=== PATIENT | male | born 1990 | race African-American/Black ===

== ENCOUNTER 2017-08-30 11:24 | Emergency (ER) | payer OTHER ==
[~2017-08-30] VITALS: Ht 185.4 cm; Wt 99.8 kg
[~2017-08-30 11:24] MED LIST: ADVAIR 250-501 EACH IH; CEPHALEXIN 500500 M2 PO; MEDROLDOSEPACK PO; NOHOMEMEDICATIONS; NORCO 5-325 TA1 EACH PO; PREDNISONE 20 M20 M1 PO; PROAIR HFA8.5 GM IH; PROAIR HFA8.5 GM PO; PROMETHAZINE-C120 ML PO; VENTOLIN17 GM INH; ZPAK PO
[2017-08-30 12:34] LABS: INFLUENZA B ANTIGEN None Detected (None Detect)
[2017-08-30 12:35] LABS: HEMATOCRIT 51.6 % (42.0-52.0); MCH 27.4 pg (26.0-34.0); MCHC 32.9 g/dL (28.0-37.0); MCV 83.3 fL (80.0-100.0); MPV 8.7 fl. (7.2-11.1); NUCLEATED RBCS 0 /100WBC; PLATELET COUNT* 290 thou/uL (150-400); RBC 6.19 mil/uL (4.50-6.00); RDW-CV 13.9 % (10.5-14.5); WBC 6.1 thou/uL (4.0-11.0)
[2017-08-30] MEDS ORDERED: OSELB75 PO (12:41)
[2017-08-30] MEDS ORDERED: ZOFRAN ODT4 MG PO (12:41)
[2017-08-30 12:43] LABS: CALCIUM 9.2 mg/dL (8.5-10.1); CREATININE 1.7 mg/dL (0.6-1.3); POTASSIUM 3.7 mmol/L (3.5-5.1)
[2017-08-30 12:47] LABS: ALBUMIN 3.9 g/dL (3.4-5.0); TOTAL BILIRUBIN 0.4 mg/dL (<0.1-1.0); TOTAL PROTEIN 8.1 g/dL (6.4-8.2)
[2017-08-30 12:56] VITALS: BP 110/72
[2017-08-30 13:07] LABS: ABSOLUTE BASOPHILS 0.1 thou/uL (0.0-0.2); ABSOLUTE LYMPHOCYTES 1.4 thou/uL (0.8-5.3); ABSOLUTE MONOCYTES 0.9 thou/uL (0.0-1.2); ABSOLUTE NEUTROPHILS 3.7 thou/uL (1.6-8.1); ATYPICAL LYMPHS 6 %; GIANT PLATELETS OCCASIONAL; LARGE PLATELETS FEW; PLATELET ESTIMATE ADEQUATE
== END 2017-08-30 12:57 | disposition home or self-care (01) ==
LOC: M.ERS 11:24
PROVIDERS: Physician Assistant
DX: J11.1 Influenza due to unidentified influenza virus with other respiratory manifestations (principal); J45.909 Unspecified asthma, uncomplicated

== ENCOUNTER 2018-03-03 10:00 | Emergency (ER) | payer OTHER ==
[~2018-03-03] VITALS: Ht 185.4 cm; Wt 102.1 kg
[~2018-03-03 10:00] MED LIST changes: +OSELB75 PO; +ZOFRAN ODT4 MG PO
[2018-03-03] MEDS ORDERED: VENTOLIN HFA 1818 GM INH (10:06)
[2018-03-03] MEDS ORDERED: PREDNISONE 20 M20 M1 PO (10:21)
[2018-03-03] MEDS ORDERED: ZOFRAN4 MG PO (10:27)
[2018-03-03 11:08] VITALS: BP 148/86
== END 2018-03-03 11:08 | disposition home or self-care (01) ==
LOC: M.ERS 10:00
DX: J45.901 Unspecified asthma with (acute) exacerbation (principal); R11.2 Nausea with vomiting, unspecified; R19.7 Diarrhea, unspecified; F17.200 Nicotine dependence, unspecified, uncomplicated